=== PATIENT | female | born 1960 | race Caucasian/White ===

== ENCOUNTER 2016-06-27 10:51 | Outpatient (CLI) | payer BC, MEDICARE ==
[~2016-06-27] VITALS: Ht 175.3 cm; Wt 62.1 kg
[2016-06-27] VITALS (10 sets, daily range): BP systolic 94–129; BP diastolic 59–82; PULSE 57–69; RESP 12–16; TEMP 97.2–98.6; O2SAT 96–100; Ht 175.3 cm; Wt 62.1 kg
[~2016-06-27 10:51] MED LIST: ALBU8.5H INH; AMLO1CAP PO; BACL20TA71 PO; BENZ100C97 PO; BIOT10003 PO; BUPR300T59 PO; CALC-191 PO; CHOL40003 PO; CLON1TAB4 PO; CLOP75TA19 PO; CRAN1CAP3 PO; DEXT15CA20 PO; ESTR10TA VAGINALLY; EZET1TAB2 PO; FISH1CAP59 PO; FLUO40CA49 PO; FLUT16SP13 EA NOSTRIL; FLUT1DIS31 INH; GARL1000 PO; IBUP-1547 PO; LEVO100T83 PO; MULT-933 PO; NITR0.4T27 SL; OXYC60TA7 PO; PREN-58 PO; RISE35TA12 PO; ROPI1TAB12 PO; VITA-357 PO; [UNRECOGNIZED DRUG - CODE] PO
--- NOTE | 2016-06-27 10:57 | NUR ---
ARRIVAL PATIENT ARRIVED TO SURGICAL UNIT ROOM 116 AT THIS TIME. PT AMBULATORY. PT APPEARS IN NO ACUTE DISTRESS. FAMILY AT BEDSIDE. WILL CONTINUE TO MONITOR.
[2016-06-27] MEDS ORDERED: IOHEXOL 300 MG/ML 50ml INJECTION ONE (11:08)
[2016-06-27] MEDS ORDERED: EZET1TAB2 PO (12:01)
[2016-06-27] MEDS ORDERED: CARV3.12 PO (12:01)
[2016-06-27] MEDS ORDERED: CALC600T12 PO (12:01)
[2016-06-27] MEDS ORDERED: VALA500T42 PO (12:01)
[2016-06-27] MEDS ORDERED: CRAN500C3 PO (12:01)
[2016-06-27] MEDS ORDERED: FLUO40CA49 PO (12:01)
[2016-06-27] MEDS ORDERED: DULO30CA52 PO (12:01)
[2016-06-27] MEDS ORDERED: TOPI200T45 PO (12:01)
[2016-06-27] MEDS ORDERED: FURO20TA4 PO (12:01)
[2016-06-27] MEDS ORDERED: ESTR10TA VAGINALLY (12:01)
[2016-06-27] MEDS ORDERED: OXYC15TA50 PO (12:01)
[2016-06-27] MEDS ORDERED: FISH12002 PO (12:01)
[2016-06-27] MEDS ORDERED: CHOL50006 PO (12:01)
[2016-06-27] MEDS ORDERED: ASPI325T PO (12:01)
[2016-06-27] MEDS ORDERED: AMLO1CAP10 PO (12:01)
[2016-06-27] MEDS ORDERED: DULO60CA56 PO (12:01)
[2016-06-27] MEDS ORDERED: LEVO5TAB20 PO (12:01)
[2016-06-27 12:03] LABS: INR 0.92 (0.76-1.04)
--- NOTE | 2016-06-27 13:26 | NUR ---
TO RADIOLOGY PATIENT TAKEN TO RADIOLOGY AT THIS TIME VIA RADIOLOGY STAFF AND WHEELCHAIR. CHART AND CONSENT SENT WITH PATIENT. WILL CONTINUE TO MONITOR.
--- NOTE | 2016-06-27 13:50 | NUR ---
CM CM IN TO VISIT WITH PT AND MOTHER. PT PLANS TO DC HOME. SHE DENIES DC NEEDS. SHE IS GIVEN CM CONTACT INFORMATION. Addendum: 06/27/16 at 1351 by PRASANNA CARD RN Amended: Links added.
--- NOTE | 2016-06-27 14:20 | NUR ---
RETURN PT RETURNED TO ROOM 116 AT THIS TIME VIA WHEELCHAIR. PT REPOSITIONED SELF INTO THE BED IN A LYING SUPINE POSITION. VITAL SIGNS STABLE ON ROOM AIR. BED ALARM ON. SIDE RAILS UP X2. WILL CONTINUE TO MONITOR.
--- NOTE | 2016-06-27 14:55 | DI ---
Indication: ITS.REASON: M54.5 LOW BACK PAIN PROCEDURE: CT LUMBAR SPINE W/O CONTRAST: Encounter: Initial Comparison: None Technique: Axial noncontrast CT imaging of the lumbar spine was performed with coronal and sagittal two-dimensional reformats. Three-dimensional surface shaded volume rendered imaging was also created on a dedicated workstation and reviewed. Automated Exposure Control and Iterative Reconstruction dose reducing techniques were utilized. FINDINGS: Alignment of the lumbar spine shows grade 1 anterolisthesis of L4 on L5. Anterior and posterior spinal fusion extending from L2 through S1. There is lucency surrounding the bilateral L2 pedicle screws, the right screw extends into the L1-L2 disk space. This is concerning for loosening or infection. No other areas concerning for loosening or hardware failure. Interbody bone cages seen at L3-L4, L4-L5 and L5-S1. No acute fracture identified. Severe degenerative endplate change at L1-L2 with vacuum disk phenomenon and severe height loss. The paraspinal soft tissues show no acute findings. Posterior decompressions noted at L3-L4 and L4-L5. Segmental analysis: T12-L1: Normal L1-L2: Severe disk height loss without focal protrusion. Ligamentum flavum thickening and degenerative facet change contributing to mild to moderate central canal narrowing. No significant neural foraminal stenosis. L2-L3: No focal disk protrusion or central canal stenosis. No neural foraminal stenosis. L3-L4: No focal protrusion. Posterior decompression no obvious neural foraminal stenosis. L4-L5: Posterior decompression. No significant neural foraminal stenosis. L5-S1: No focal disk herniation or central canal stenosis. No significant neural foraminal stenosis. Impression: Lucency surrounding the L2 pedicle screws bilaterally concerning for infection or loosening. Recommend clinical and laboratory correlation. .
--- NOTE | 2016-06-27 15:02 | DI ---
Indication: ITS.REASON: M48.2 SPINAL STENOSIS PROCEDURE: CT MYELOGRAM CERVICAL SPINE: Encounter: Initial Comparison: None Technique: Axial CT imaging through the cervical spine was performed after the administration of intrathecal contrast. The myelogram injection is described in a separate procedural report. Coronal and sagittal two-dimensional reformats. Automated Exposure Control and Iterative Reconstruction dose reducing techniques were utilized. Findings: Alignment of the cervical spine is straightened with loss of the normal lordosis. No acute fracture or subluxation seen. There is mild to moderate disk space narrowing at C5-C6 and C6-C7. No contour deforming cord lesion or mass. The paraspinal soft tissues show no acute findings. Segmental analysis: C2-C3: No focal disk herniation, central canal or neural foraminal stenosis. C3-C4: Small central disk osteophyte without central canal or neural foraminal stenosis. C4-C5: Small left central disk osteophyte resulting in mild left neural foraminal stenosis. No significant right foraminal stenosis. C5-C6: Right-sided uncovertebral and degenerative facet changes contributing to moderate neural foraminal stenosis. No focal central protrusion or central canal stenosis. Mild left neural foraminal narrowing. C6-C7: Central disk protrusion mildly effacing the ventral thecal sac with mild central canal narrowing. Degenerative uncovertebral changes resulting in moderate left and mild right neural foraminal stenosis. C7-T1: Normal Impression: Degenerative disk and facet disease as above. .
--- NOTE | 2016-06-27 15:12 | DI ---
INDICATION: ITS.REASON: M48.02 Ordering physician:Viji Davis MD Procedure:MYELOGRAM CERVICAL INJECTION FOR CT MYELOGRAM: The procedure including the benefits, risks, and alternatives were explained in detail to the patient. All of their questions were answered. She stated that she understood and wished to proceed. Informed consent was obtained. A preprocedural timeout was performed to confirm the correct patient and procedure. Using sterile technique, local Xylocaine anesthesia, and fluoroscopic guidance throughout, a 22 G spinal needle was advanced from a posterior approach into the subarachnoid space at the L4 level. A fluoroscopic image was then obtained and archived. Removal of the stylet showed clear colorless CSF. 15 cc of Omnipaque 300 was slowly instilled within the intrathecal space. The needle was then removed. Fluoroscopic images were then obtained. Following this, the patient was transferred to the CT department for their scan. Please see the separate CT report. Impression: Successful intrathecal injection of contrast for a CT cervical myelogram. Fluoroscopy dose: 7.66 mGy (Cumulative air kerma) Louis Tidwell RPA/SHEA performed this under my personal supervision. .
--- NOTE | 2016-06-27 16:52 | NUR ---
DISCHARGE PT DISCHARGED TO HOME AT THIS TIME IN THE COMPANY OF HER MOTHER AFTER MEETING DISCHARGE CRITERIA. THIS RN NOTIFIED DR. PIZARRO REGARDING PT'S DISCHARGE A COURTESY. NO FURTHER CONCERNS FROM DR. PIZARRO AT THIS TIME. DISCHARGE INSTRUCTION INCLUDING DIET, ACTIVITY, MEDICATIONS, FOLLOW UP APPOINTMENT AND REPORTABLE S/S GIVEN AND REVIEWED WITH PATIENT. PT VERBALIZED UNDERSTANDING OF THESE INSTRUCTIONS AND HAD NO FURTHER QUESTIONS. PERSONAL BELONGINGS RETURNED.
== END 2016-06-27 16:51 | disposition home or self-care (01) ==
LOC: IMA.BED 10:51 → SRG 10:52 → IMA.BED 16:51
PROVIDERS: ATTEND Radiology Diagnostic Radiology
DX: M48.02 Spinal stenosis, cervical region (principal); M47.892 Other spondylosis, cervical region; M47.896 Other spondylosis, lumbar region; M50.223 Other cervical disc displacement at C6-C7 level; M50.31 Other cervical disc degeneration, high cervical region; M50.321 Other cervical disc degeneration at C4-C5 level; R93.7 Abnormal findings on diagnostic imaging of other parts of musculoskeletal system; Z98.1 Arthrodesis status; Z98.890 Other specified postprocedural states; Z51.81 Encounter for therapeutic drug level monitoring; M54.5 Low back pain
CPT/HCPCS: 36415; 62302; 72126; 72131; 85049; 85610; Q9967

== ENCOUNTER 2016-06-28 16:30 | Emergency (ER) | payer BC, MEDICARE ==
[~2016-06-28] VITALS: Ht 175.3 cm; Wt 64.9 kg
[~2016-06-28 16:30] MED LIST changes: -AMLO1CAP PO; +AMLO1CAP10 PO; +ASPI325T PO; -BENZ100C97 PO; -BIOT10003 PO; -CALC-191 PO; +CALC600T12 PO; +CARV3.12 PO; -CHOL40003 PO; +CHOL50006 PO; -CRAN1CAP3 PO; +CRAN500C3 PO; +DULO30CA52 PO; +DULO60CA56 PO; +FISH12002 PO; +FURO20TA4 PO; +LEVO5TAB20 PO; -MULT-933 PO; +OXYC15TA50 PO; +TOPI200T45 PO; +VALA500T42 PO; -VITA-357 PO
[2016-06-28 16:33] VITALS: Ht 175.3 cm; Wt 64.9 kg
--- OUTSIDE RECORDS SUMMARY | 2016-06-28 16:33 | XMS REPORT ---
Author Author Lois Mcintyre [facility], [facility] Address [address] [place] [address] Care Team Providers Care Licensed Pesticide Applicator Name Role Phone Lois Mcintyre Unavailable [phone] PROBLEMS Type Condition ICD9-CM Code [id number] Code Onset Dates Condition Status SNOMED Code Problem Amputation of left lower extremity below knee Z89.512 Active 372667759 Problem Essential hypertension, hypertension with unspecified goal I10 Active 17357078 Problem Mixed hyperlipidemia E78.2 Active 196376933 Problem Type 2 diabetes mellitus without complication E11.9 Active 87046394 Problem Acquired hypothyroidism E03.9 Active 617672858 Problem Osteoporosis M81.0 Active 61380703 ALLERGIES Unknown Allergies SOCIAL HISTORY No smoking Hx information available PLAN OF CARE VITAL SIGNS MEDICATIONS Medication Instructions Dosage Frequency Start Date End Date Duration Status Synthroid 100 mcg (0.1 mg) orally once a day 1 tab(s) 24h Mar, 90 days Active Lotrel 2.5 mg-10 mg orally once a day 1 cap(s) 24h Mar, 90 days Active RESULTS No Results PROCEDURES No Known procedures IMMUNIZATIONS No Known Immunizations
--- OUTSIDE RECORDS SUMMARY | 2016-06-28 16:34 | XMS REPORT | Continuity of Care Document ---
Author Author [facility] Organization [facility] Address Unknown Phone Unavailable Support Name Relationship Address Phone SARAH PIZARRO MD Caregiver [address] [facility] [place] [address] Unavailable KARTHIK ADEN Caregiver [address] [place] [address] Unavailable MARCY HUTCHINS Next Of Kin [address] [place] [address] Insurance Providers Guarantor Inessa Menendez Address [address] [place] [address] CP Email [email or web address] Payer Medicare Policy Number [id number] Subscriber's Name Inessa Menendez Relationship 18 Self Effective Date 01 Payer [employer] Other Policy Number [id number] Subscriber's Name Lan Menendez Relationship 01 Spouse Group Number [id number] Advance Directives Directive Response Recorded Date/Time Ordered Resuscitation Status Full Code 06/27/16 9:19am Resuscitation Documents on File No 06/27/16 11:11am DPOA for Healthcare Only No 06/27/16 11:11am Living Will No 06/27/16 11:11am Problems Active Problems Medical Problem Onset Date Status GI bleed Unknown Acute Hernia Unknown Acute Nosebleed Unknown Acute Sinusitis, acute maxillary Unknown Acute Upper respiratory infection with cough and congestion Unknown Acute Past Problems Medical Problem Onset Date Sinusitis, acute maxillary Unknown Upper respiratory infection with cough and congestion Unknown Medications Current Home Medications Medication Dose Units Route Directions Days Qty Instructions Start Date Albuterol Sulfate (Proair Hfa 90 Mcg/Actuation) 8.5 Gm Hfa.aer.ad 1 Puff Inhalation Twice A Day as needed for Shortness Of Air 12/28/15 Amlodipine Besylate/Benazepril (Amlodipine-Benazepril 2.5-10) 1 Each Capsule 1 Cap Oral Daily 06/27/16 Aspirin 325 Mg Tablet 1 Tab Oral Daily 30 Tablet 06/27/16 Baclofen 20 Mg Tablet 1 Tab Oral Three Times A Day 10/20/10 Bupropion Hcl (Bupropion Xl) 300 Mg Tab.er.24h 300 Mg Oral Daily 07/04/15 Calcium Carbonate (Calcium) 600 Mg Tablet 2 Cap Oral Daily Carvedilol (Coreg) 3.125 Mg Tablet 3.125 Mg Oral Twice Daily With Meals BEST WITH FOOD. 06/27/16 Cholecalciferol (Vitamin D3) 5,000 Unit Capsule 2 Cap Oral Daily 06/27/16 Clonazepam 1 Mg Tablet 1-2 Mg Oral Bedtime as needed for Sl 07/03 Clopidogrel Bisulfate (Plavix) 75 Mg Tablet 75 Mg Oral Daily 09/23 Cranberry Extract (Cranberry) 500 Mg Capsule 1 Cap Oral Daily Dextromethorphan Hbr (Robitussin) 15 Mg Capsule 05/19/16 Duloxetine Hcl 30 Mg Capsule. 1 Cap Oral Daily 06/27/16 Duloxetine Hcl 60 Mg Capsule. 1 Cap Oral Daily 06/27/16 Estradiol (Vagifem) 10 Mcg Tablet 10 Mcg Vaginally Twice A Week 07/04/15 Estradiol (Vagifem) 10 Mcg Tablet 1 Tab Vaginally 3 Times A Week 06/27/16 Ezetimibe/Simvastatin (Vytorin 10-20 Mg Tablet) 1 Each Tablet 1 Tab Oral Bedtime 07/04/15 Ezetimibe/Simvastatin (Vytorin 10-20 Mg Tablet) 1 Each Tablet 1 Tab Oral Daily 06/27/16 Fish Oil/Borage/Flax/Om3,6,9#1 ([place] 3-6-9 1,200 Mg Softgel) 1,200 Mg Capsule 1 Cap Oral Daily 06/27/16 Fish Oil/Dha/Epa (Fish Oil 1,200 Mg Fish Oil) 1 Each Capsule 1,200 Mg Oral Daily 07/04/15 Fluoxetine Hcl 40 Mg Capsule 40 Mg Oral Daily 07/04/15 Fluoxetine Hcl 40 Mg Capsule 2 Cap Oral Daily 06/27/16 Fluticasone Propionate 16 Gm [place].susp 1 [place] Each Nostril Twice A Day as needed for Prn Orders 10/20/10 Furosemide 20 Mg Tablet 1 Tab Oral Daily 06/27/16 Garlic 1,000 Mg Capsule 1,000 Mg Oral Daily 07/04/15 Ibuprofen 800 Mg Tablet 800 Mg Oral Twice A Day 07/04/15 Levocetirizine Dihydrochloride (Xyzal) 5 Mg Tablet 1 Tab Oral Daily as needed for Allery Symptoms 06/27/16 Levothyroxine Sodium (Synthroid) 100 Mcg Tablet 100 Mcg Oral Daily 10/20/10 Nitroglycerin (Nitroquick) 0.4 Mg Tablet 0.4 Mg Sublingual Every 5 Minutes X 3 12/07/10 Oxycodone Hcl 15 Mg Tablet 15 Mg Oral Every 6 Hours as needed for Pain 06/27/16 Oxycodone Hcl (Oxycontin) 60 Mg Tab.er.12h 120 Mg Oral Twice A Day 07/04/15 Vit #76/Iron,Carb/Fa (Prenatabs Rx Tablet) 1 Each Tablet 1 Tab Oral Daily 07/04/15 Risedronate Sodium (Risedronate Sodium Dr) 35 Mg Tablet.dr 35 Mg Oral Weekly 07/04/15 Ropinirole Hcl 1 Mg Tablet 3 Tab Oral Every Evening 07/04/15 Salmeterol Xinafoate/Fluticasone (Advair 250-50 Diskus) 1 Each Disk.w.dev 1 Puff Inhalation Twice A Day as needed for Prn Orders 12/07/10 Sennosides/Docusate Sodium (Senokot-S Tablet) 1 Tab Tablet 2 Tab Oral Twice A Day 10/20/10 Topiramate 200 Mg Tablet 1 Tab Oral Twice A Day 06/27/16 Valacyclovir Hcl (Valacyclovir) 500 Mg Tablet 1 Tab Oral Twice A Day 30 Tablet 06/27/16 Past Home Medications Medication Directions Ordered Status Aspirin 325 Mg Tablet, 325 Mg Oral 02/05/10 Discontinued Aspirin , 10/07/09 Discontinued Baclofen 20 Mg Tablet, 20 Mg Oral Twice A Day 02/05/10 Discontinued Baclofen 10 Mg Tablet, 10/07/09 Discontinued Clindamycin Hcl (Cleocin) 150 Mg Capsule, 150 Mg Oral Twice A Day 07/07/08 Discontinued Clopidogrel Bisulfate (Plavix) 75 Mg Tablet, 75 Mg Oral 02/05/10 Discontinued Estradiol (Divigel) 1 Packet Gel.packet, 1 Packet Transderm Daily 10/20/10 Discontinued Fentanyl (Duragesic 100 Mcg/Hr) 1 Patch .72 H Patch.td72, 1 Patch Transderm 02/05/10 Discontinued Glucophage , 07/07/08 Discontinued Isosorbide , 10/07/09 Discontinued Isosorbide Mononitrate (Imdur) 120 Mg Tab.sr.24h, 120 Mg Oral 02/05/10 Discontinued Levothyroxine Sodium (Synthroid) 100 Mcg Tablet, 100 Mcg Oral 02/05/10 Discontinued Lotrel , 10/07/09 Discontinued Metformin Hcl 500 Mg Tablet, 500 Mg Oral 02/05/10 Discontinued Nitroglycerin 0.4 Mg Tab.subl, 0.4 Mg Sublingual As Needed 10/07/09 Discontinued Opana Er , 07/07/08 Discontinued Oxycodone Hcl 15 Mg Tablet, 15 Mg Oral 02/05/10 Discontinued Oxycodone Hcl 5 Mg Capsule, 5 Mg Oral As Needed 10/07/09 Discontinued Plavix , 10/07/09 Discontinued Reglan , 07/07/08 Discontinued Requip , 10/07/09 Discontinued Zofran , 07/07/08 Discontinued Social History Social History Problem Response Recorded Date/Time Onset Date Status Reason for Hospitalization Myelogram 06/27/2016 3:07pm Not Applicable Not Applicable Chewing Tobacco Status No 06/27/2016 11:14am Not Applicable Not Applicable Hx Substance Use No 06/27/2016 11:14am Not Applicable Not Applicable Hx Alcohol Use No 06/27/2016 11:14am Not Applicable Not Applicable Has the pt used tobacco in the last 12 months Yes 06/27/2016 11:14am Not Applicable Not Applicable Tobacco Usage none 10/01/2014 10:24am Not Applicable Not Applicable Query Response Start Date Stop Date Smoking Status Former smoker Hospital Discharge Instructions Instructions: Care Instructions: I was in the hospital because (patient own words): "CT AND MYLEOGRAM" Discharge Diet: As tolerates Discharge Activity: See discharge instructions Follow Up Appointments: Follow up with provider as needed. Pending Lab / Results: No Pending Lab Expected Signs/Symptoms: See discharge instructions Notify Physician If: There are any concerns During Business Hours:: Please call the physician's office at After Business Hours:: Please call [phone] and have the plastics sheet finishing press operator page the physician. Pain Management/Treatment: See discharge instructions Pain Scale Utilized to Educate Patient: 0-10 Pain Scale Wound/Incision Care: See discharge instructions Condition at time of discharge: Good Plan of Care Discharge Date 06/27/16 4:51pm Instructions/Education Provided [facility] Myelogram/Lumbar Puncture Myelogram (DC) Prescriptions See Medication Section Functional Status Query Response Date Recorded Mobility Status Ambulatory June 27, 2016 11:25am Assistive Devices Prosthesis June 27, 2016 11:25am Feeding Ability Independent June 27, 2016 11:25am Toileting Ability Independent June 27, 2016 11:25am Grooming Ability Independent June 27, 2016 11:25am Dressing Ability Independent June 27, 2016 11:25am Driving Ability Independent June 27, 2016 11:25am Housework Ability Independent June 27, 2016 11:25am Meal Preparation Ability Independent June 27, 2016 11:25am Stair Climbing Ability Independent June 27, 2016 11:25am Ability to complete ADL's impeded by No change June 27, 2016 11:25am Cognitive/Perceptual Impairments Impaired vision June 27, 2016 11:25am Visual Assistive Devices Glasses With patient June 27, 2016 11:25am Preferred Method of Learning Reading Listening June 27, 2016 11:25am Allergies, Adverse Reactions, Alerts Allergen Type Severity Reaction Status Last Updated varenicline tartrate Allergy Mild Active 06/27/16 Sulfa (Sulfonamide Antibiotics) Allergy Unknown Active 06/27/16 Gabapentin Allergy Unknown Active 06/27/16 Immunizations Query Response on File Recorded Date/Time Hx Influenza Vaccination Y fall 201506/27/16 11:14am Hx Pneumococcal Vaccination Y 201406/27/16 11:14am Hx Influenza Vaccination Y fall 201506/27/16 11:14am DTaP Vaccine History UNKNOWN 05/19/16 2:29pm Influenza Vaccine Hx DEC 2015 05/19/16 2:29pm Vital Signs Acute Vital Signs Vital Response Date/Time Temperature (Fahrenheit) 98.6 deg F (96.8 - 99.1) 06/27/2016 2:33pm Temperature (Calculated Celsius) 37.60460 degrees C (36.0 - 37.3) 06/27/2016 2:33pm Temperature Source Oral 06/27/2016 2:33pm Pulse Rate (adult) 69 bpm (60 - 100) 06/27/2016 4:18pm Respiratory Rate 16 breaths/min (10 - 20) 06/27/2016 4:18pm O2 Sat by Pulse Oximetry 97 % (90 - 100) 06/27/2016 4:18pm Oxygen Delivery Method Room Air 06/27/2016 4:18pm Oxygen Delivery Method Room Air 06/27/2016 3:23pm Blood Pressure 109/69 mm Hg 06/27/2016 4:18pm Blood Pressure Source Automatic Cuff 06/27/2016 4:18pm Height (Feet) 5 feet 06/27/2016 11:09am Height (Inches) 9.00 inches 06/27/2016 11:09am Weight (Kilograms) 62.100 kg 06/27/2016 11:24am Body Mass Index (BMI) 20.2 06/27/2016 11:09am Results Laboratory Results Test Name Result Units Flags Reference Collection Date/Time Result Date/ Time Comments Platelet Count 207 T/MM3 130-400 06/27/2016 11:38am 06/27/2016 12:01pm Prothromb Time International Ratio 0.92 0.76-1.04 06/27/2016 11:38am 06/27/2016 12:03pm THERAPUTIC RANGE=2.00-3.00 FOR ANTI-THROMBOSIS THERAPUTIC RANGE=2.50-3.50 FOR IMPLANTED VALVE Name: INESSA MENENDEZ Unit #: [id number] : 1960 Sex: F Admit Date: Loc / Svc: SRG Discharge Date: DIAGNOSTIC IMAGING REPORT Report #: [id number] [facility] Tim PATTI INDICATION: ITS.REASON: M48.02 Ordering physician:Viji Davis MD Procedure:MYELOGRAM CERVICAL INJECTION FOR CT MYELOGRAM: The procedure including the benefits, risks, and alternatives were explained in detail to the patient. All of their questions were answered. She stated that she understood and wished to proceed. Informed consent was obtained. A preprocedural timeout was performed to confirm the correct patient and procedure. Using sterile technique, local Xylocaine anesthesia, and fluoroscopic guidance throughout, a 22 G spinal needle was advanced from a posterior approach into the subarachnoid space at the L4 level. A fluoroscopic image was then obtained and archived. Removal of the stylet showed clear colorless CSF. 15 cc of Omnipaque 300 was slowly instilled within the intrathecal space. The needle was then removed. Fluoroscopic images were then obtained. Following this, the patient was transferred to the CT department for their scan. Please see the separate CT report. Impression: Successful intrathecal injection of contrast for a CT cervical myelogram. Fluoroscopy dose: 7.66 mGy (Cumulative air kerma) Sarah Tidwell RPA/SHEA performed this under my personal supervision. . Procedures No known history of procedures. Encounters Encounter Location Arrival/Admit Date Discharge/Depart Date Attending Provider Departed Clinic [facility] 06/27/16 10:51am 06/27/16 4:51pm SARAH PIZARRO MD Departed Emergency Room [facility] 05/19/16 2:20pm 05/19/16 3: 03pm BRIEN CRISTINA APRN
--- OUTSIDE RECORDS SUMMARY | 2016-06-28 16:35 | XMS REPORT ---
Author Author Lois Mcintyre Organization [facility], [facility] Address [address] [place] [address] Care Team Providers Care Cattle Dehorner Name Role Phone Lois Mcintyre Unavailable [phone] PROBLEMS Type Condition ICD9-CM Code [id number] Code Onset Dates Condition Status SNOMED Code Assessment Common cold J00 Jan, Active 07684002 Problem Amputation of left lower extremity below knee Z89.512 Active 778852722 Problem Essential hypertension, hypertension with unspecified goal I10 Active 80963192 Problem Mixed hyperlipidemia E78.2 Active 497034065 Problem Type 2 diabetes mellitus without complication E11.9 Active 11491484 Problem Acquired hypothyroidism E03.9 Active 808928786 Problem Osteoporosis M81.0 Active 82266020 ALLERGIES Substance Reaction Event Type Date Status morphine swelling Drug Allergy Jan, Active Macrodantin doesnt work well Drug Allergy Jan, Active Xanax itchy Drug Allergy Jan, Active chantix hives Non Drug Allergy Jan, Active Neurontin hives and rash Non Drug Allergy Jan, Active Sulfa shock Non Drug Allergy Jan, Active SOCIAL HISTORY No smoking Hx information available PLAN OF CARE VITAL SIGNS Height 69.25 in 2016-01-25 Weight 128.8 lbs 2016-01-25 Temperature 97.9 degrees Fahrenheit 2016-01-25 Respiratory Rate 16 /min 2016-01-25 BMI 18.88 kg/m2 2016-01-25 Blood pressure systolic 144 mm Hg 2016-01-25 Blood pressure diastolic 90 mm Hg 2016-01-25 MEDICATIONS Medication Instructions Dosage Frequency Start Date End Date Duration Status Xyzal 5 mg orally once a day (in the evening) 1 tab(s) Jun, 30 day(s) Active Atelvia 35mg orally once a week 1 Dec, 90 days Active Vytorin 10 mg-20 mg orally once a day 1 tab(s) 24h Jun, 30 days Active Lotrel 2.5 mg-10 mg orally once a day 1 cap(s) 24h 12 Salty, 2016 90 days Active Vagifem 10 mcg intravaginally 3 times a week 10 mcg 20 Dec, 2013 90 days Active duloxetine 60 mg orally 2 times a day 1 cap(s) 12h Active oxycodone 15 mg orally every 6 hours prn 1 tab(s) Active Cymbalta 30 mg orally 2 times a day 1 cap(s) 12h Active Advair Diskus 250 mcg-50 mcg inhaled BID 1 puff(s) 12h 90 day(s) Active ProAir HFA CFC free 90 mcg/inh inhaled QID-PRN 2 puff(s) Sep, 30 days Active Requip 1 mg orally 3 times a day 1 tab(s) 8h Mar, 90 days Active baclofen 20 mg orally 3 times a day 1 tab(s) 8h May, 30 days Active clonazepam 1 mg orally QHS 2 tab(s) Oct, 30 days Active Nitrostat 1/150GR po as needed DISSOLVE 1 TABLET UNDER TONGUE NEEDED FOR CHEST PAIN 30 days Active Eren Contour Test Strips use 1 test strip to test blood sugars July 30 days Active Plavix 75 mg orally once a day 1 tab(s) 24h Mar, 90 days Active Nasacort Allergy 24HR 55 mcg/inh intranasally once a day 2 spray(s) 24h Oct, 30 day(s) Active Wellbutrin XL 300 mg/24 hours orally Q24H 1 tab(s) Mar, 90 days Active Synthroid 100 mcg (0.1 mg) orally once a day 1 tab(s) 24h Mar, 90 days Active Eren contour lancets use 1 lancet to test blood sugars July, 30 days Active Valtrex 500 mg orally BID 1 tab 12h Apr, 90 days Active Prozac 40 mg orally bid 1 cap(s) 12h Mar, 90 days Active topiramate 200 mg orally BID 1 tab(s) 12h Active Prenatabs Rx Multivitamins with Folic Acid 1 mg orally once a day 1 tab(s) 24h Jan, 90 days Active Eren Contour Meter use meter to test blood sugars July, Active RESULTS No Results PROCEDURES Procedure Date Ordered Related Diagnosis Body Site OFC/OUTPT E&M ESTAB LOW-MOD 1Proc. Jan 25, 2016 Dexamethasone 4mg/ml Jan 25, 2016 Depo Medrol 40mg Jan 25, 2016 IMMUNIZATIONS Vaccine Route Administration Date Status Depo Medrol 40mg IM Intramuscular 0: 00, 14:5 Administered Dexamethasone 4mg/ml IM Intramuscular 0: 00, 14:5 Administered
--- OUTSIDE RECORDS SUMMARY | 2016-06-28 16:36 | XMS REPORT ---
Author Author Lois Mcintyre Organization [facility], [facility] Address [address] [place] [address] Care Team Providers Care Vehicle Controls Engineer Name Role Phone McintyreLois Unavailable [phone] PROBLEMS Type Condition ICD9-CM Code [id number] Code Onset Dates Condition Status SNOMED Code Assessment Acute effusion of right ear H65.191 Oct, Active 85697071 Problem Amputation of left lower extremity below knee Z89.512 Active 965776277 Problem Essential hypertension, hypertension with unspecified goal I10 Active 88697698 Problem Mixed hyperlipidemia E78.2 Active 446668878 Problem Type 2 diabetes mellitus without complication E11.9 Active 56426317 Problem Acquired hypothyroidism E03.9 Active 652695646 Problem Osteoporosis M81.0 Active 79598310 ALLERGIES Substance Reaction Event Type Date Status morphine swelling Drug Allergy Oct, Active Macrodantin doesnt work well Drug Allergy Oct, Active Xanax itchy Drug Allergy Oct, Active chantix hives Non Drug Allergy Oct, Active Neurontin hives and rash Non Drug Allergy Oct, Active Sulfa shock Non Drug Allergy Oct, Active SOCIAL HISTORY No smoking Hx information available PLAN OF CARE VITAL SIGNS Height 69.25 in 2015-10-16 Weight 124.2 lbs 2015-10-16 Temperature 98.5 degrees Fahrenheit 2015-10-16 Respiratory Rate 16 /min 2015-10-16 BMI 18.21 kg/m2 2015-10-16 Blood pressure systolic 110 mm Hg 2015-10-16 Blood pressure diastolic 80 mm Hg 2015-10-16 MEDICATIONS Medication Instructions Dosage Frequency Start Date End Date Duration Status Synthroid 100 mcg (0.1 mg) orally once a day 1 tab(s) 24h Mar, 90 days Active Vytorin 10 mg-20 mg orally once a day 1 tab(s) 24h Jun, 30 days Active Advair Diskus 250 mcg-50 mcg inhaled BID 1 puff(s) 12h 30 day(s) Active Vagifem 10 mcg intravaginally 3 times a week 10 mcg Dec, 90 days Active baclofen 20 mg orally 3 times a day 1 tab(s) 8h May, 30 days Active Eren contour lancets use 1 lancet to test blood sugars July, 30 days Active Fluticasone Propionate 50 mcg/inh intranasally BID 1 spray(s) 12h Oct, 30 day(s) Active Lotrel 2.5 mg-10 mg orally once a day 1 cap(s) 24h Mar, 90 days Active clonazepam 1 mg orally QHS 2 tab(s) Oct, 90 days Active Requip 1 mg orally 3 times a day 1 tab(s) 8h Mar, 90 days Active Prenatabs Rx Multivitamins with Folic Acid 1 mg orally once a day 1 tab(s) 24h Jan, 90 days Active topiramate 200 mg orally BID 1 tab(s) 12h Active oxycodone 15 mg orally every 6 hours prn 1 tab(s) Active Reen Contour Test Strips use 1 test strip to test blood sugars July 30 days Active Wellbutrin XL 300 mg/24 hours orally Q24H 1 tab(s) Mar, 90 days Active ProAir HFA CFC free 90 mcg/inh inhaled QID-PRN 2 puff(s) Sep, 30 days Active Eren Contour Meter use meter to test blood sugars July, Active Xyzal 5 mg orally once a day (in the evening) 1 tab(s) Jun, 30 day(s) Active Nitrostat 1/150GR po as needed DISSOLVE 1 TABLET UNDER TONGUE NEEDED FOR CHEST PAIN 30 days Active Plavix 75 mg orally once a day 1 tab(s) 24h Mar, 90 days Active Prozac 40 mg orally bid 1 cap(s) 12h Mar, 90 days Active Atelvia 35mg orally once a week 1 Dec, 90 days Active Valtrex 500 mg orally BID 1 tab 12h Apr, 90 days Active RESULTS No Results PROCEDURES Procedure Date Ordered Related Diagnosis Body Site OFC/OUTPT E&M ESTAB LOW-MOD 1Proc. Oct 16, 2015 IMMUNIZATIONS No Known Immunizations
--- OUTSIDE RECORDS SUMMARY | 2016-06-28 16:36 | XMS REPORT ---
Author Author Lois Mcintyre [facility], [facility] Address [address] [place] [address] Care Team Providers Care Price Checker Name Role Phone Lois Mcintyre Unavailable [phone] PROBLEMS Type Condition ICD9-CM Code [id number] Code Onset Dates Condition Status SNOMED Code Problem Amputation of left lower extremity below knee Z89.512 Active 225810558 Problem Essential hypertension, hypertension with unspecified goal I10 Active 09224008 Problem Mixed hyperlipidemia E78.2 Active 884786345 Problem Type 2 diabetes mellitus without complication E11.9 Active 15293564 Problem Acquired hypothyroidism E03.9 Active 308999461 Problem Osteoporosis M81.0 Active 68797158 ALLERGIES Unknown Allergies SOCIAL HISTORY No smoking Hx information available PLAN OF CARE VITAL SIGNS MEDICATIONS Unknown Medications RESULTS No Results PROCEDURES No Known procedures IMMUNIZATIONS No Known Immunizations
--- OUTSIDE RECORDS SUMMARY | 2016-06-28 16:36 | XMS REPORT ---
Author Author Lois Mcintyre Organization [facility], [facility] Address [address] [place] [address] Care Team Providers Care Fur Stretcher Name Role Phone Lois Mcintyre Unavailable [phone] PROBLEMS Type Condition ICD9-CM Code [id number] Code Onset Dates Condition Status SNOMED Code Assessment Edema 782.3 Aug, Active 42197528 Assessment Arachnoiditis 322.9 Aug, Active 8185498 ALLERGIES Substance Reaction Event Type Date Status Macrodantin doesnt work well Drug Allergy Aug, Active Xanax ichy Drug Allergy Aug, Active chantix hives Non Drug Allergy Aug, Active Neurontin hives and rash Non Drug Allergy Aug, Active Sulfa shock Non Drug Allergy Aug, Active SOCIAL HISTORY No smoking Hx information available PLAN OF CARE VITAL SIGNS Height 69.25 in 2014-08-14 Weight 130 lbs 2014-08-14 Temperature 97.4 degrees Fahrenheit 2014-08-14 Respiratory Rate 16 /min 2014-08-14 BMI 19.06 kg/m2 2014-08-14 Blood pressure systolic 94 mm Hg 2014-08-14 Blood pressure diastolic 68 mm Hg 2014-08-14 MEDICATIONS Medication Instructions Dosage Frequency Start Date End Date Duration Status Lotrel 2.5 mg-10 mg orally once a day 1 cap(s) 24h 90 days Active Vytorin 10 mg-20 mg orally once a day 1 tab(s) 24h Jun, 14 days Active topiramate 100 mg orally BID 1 tab(s) 12h 90 days Active Atelvia 35mg orally once a week 1 Dec, 90 days Active Nitrostat 0.4 mg sublingually every 5 minutes 1 tab(s) Active clonazepam 1 mg orally QHS 2 tab(s) Oct, 90 days Active Prenatabs Rx Multivitamins with Folic Acid 1 mg orally once a day 1 tab(s) 24h Jan, 90 days Active isosorbide mononitrate 120mg orally BID 1 tab(s) 12h 18 Jul, 2011 90 days Active baclofen 20 mg orally 3 times a day 1 tab(s) 8h Jun, 90 days Active oxycodone 15 mg orally every 6 hours prn 1 tab(s) Active One Touch Ultra Strips - check blood sugar readings 12h Apr, 30 days Active Requip 1 mg orally 3 times a day 1 tab(s) 8h Oct, 90 days Active Prozac 40 mg orally bid 1 cap(s) 12h 90 day(s) Active Valtrex 500 mg orally BID 1 tab 12h 20 Dec, 2013 90 days Active Vagifem 10 mcg intravaginally 3 times a week 10 mcg Dec, 90 days Active Coreg 3.125 mg orally 2 times a day 1 tab(s) 12h Active Topamax 50 mg orally BID 1 tab(s) 12h 90 days Active Plavix 75 mg orally once a day 1 tab(s) 24h Dec, 90 days Active Wellbutrin XL 300 mg/24 hours orally Q24H 2 tab(s) 90 days Active furosemide 20 mg orally once a day 1 tab(s) 24h July, 14 days Active Synthroid 100 mcg (0.1 mg) orally once a day 1 tab(s) 24h Dec, 90 days Active Advair Diskus 250 mcg-50 mcg inhaled BID 1 puff(s) 12h 30 day(s) Active RESULTS No Results PROCEDURES Procedure Date Ordered Related Diagnosis Body Site OFC/OUTPT E&M ESTAB LOW-MOD 1Proc. August 14, 2014 IMMUNIZATIONS No Known Immunizations
--- OUTSIDE RECORDS SUMMARY | 2016-06-28 16:37 | XMS REPORT | Continuity of Care Document ---
Author Author [facility] Organization [facility] Address Unknown Phone Unavailable Care Team Providers Care Roller Coaster Engineer Name Role Phone SUKHDEEP HAYWOOD MD Primary Care Physician Unavailable Insurance Providers Guarantor Inessa Menendez Address [address] [place] [address] CP Email DENIED/NO TO PT PORTAL Payer Medicare Policy Number [id number] Subscriber's Name Inessa Menendez Relationship 18 Self Effective Date 01 Payer wise[employer] Other Policy Number [id number] Subscriber's Name Lan Menendez Relationship 01 Spouse Group Number [id number] Chief Complaint and Reason for Visit Chief Complaint Cough,Fever,Flu,URI Reason for Visit Upper respiratory infection with cough and congestion Sinusitis, acute maxillary Problems Active Problems Medical Problem Onset Date Status GI bleed Unknown Acute Hernia Unknown Acute Nosebleed Unknown Acute Past Problems Medical Problem Onset Date Sinusitis, acute maxillary Unknown Upper respiratory infection with cough and congestion Unknown Medications Current Home Medications Medication Dose Units Route Directions Days Qty Instructions Start Date Albuterol Sulfate (Proair Hfa 90 Mcg/Actuation) 8.5 Gm Hfa.aer.ad 1 Puff Inhalation Every 6 Hours as needed for Shortness Of Air 12/28/15 Amlodipine Besylate/Benazepril (Lotrel 10-20 Mg Capsule) 1 Cap Capsule 1 Cap Oral Daily 12/28/15 Amoxicillin 500 Mg Tablet 500 Mg Oral Three Times A Day 10 Days [address] Johnnie Tom Fisheries Technical Officer [facility] [address] [phone] 05/19/16 Baclofen 20 Mg Tablet 60 Mg Oral Bedtime 10/20/10 Benzonatate (Tessalon Perle) 100 Mg Capsule 100 Mg Oral Every 8 Hours for Cough 14 Days [address] Johnnie Tom Fisheries Technical Officer [facility] [address] [facility] [phone] 05/19/16 Biotin 10,000 Mcg Capsule 10,000 Mcg Oral Daily 07/04/15 Bupropion Hcl (Bupropion Xl) 300 Mg Tab.er.24h 300 Mg Oral Daily 07/04/15 Calcium Carbonate/Vitamin D3 (Calcium + Vitamin D Tablet) 1 Each Tablet 2 Tab Oral Daily 07/04/15 Cholecalciferol (Vitamin D3) (Vitamin D3) 4,000 Unit Capsule 8,000 Unit Oral Daily 12/28/15 Clonazepam 1 Mg Tablet 1 Mg Oral Bedtime 07/04/15 Clopidogrel Bisulfate (Plavix) 75 Mg Tablet 75 Mg Oral Daily 09/23 Cranberry Conc/Ascorbic Acid (Cranberry 12,600 Mg Softgel) 1 Each Capsule 25, 200 Mg Oral Bedtime 07/04/15 Dextromethorphan Hbr (Robitussin) 15 Mg Capsule 05/19/16 Estradiol (Vagifem) 10 Mcg Tablet 10 Mcg Vaginally Twice A Week 07/04/15 Ezetimibe/Simvastatin (Vytorin 10-20 Mg Tablet) 1 Each Tablet 1 Tab Oral Bedtime 07/04/15 Fish Oil/Dha/Epa (Fish Oil 1,200 Mg Fish Oil) 1 Each Capsule 1,200 Mg Oral Daily 07/04/15 Fluoxetine Hcl 40 Mg Capsule 40 Mg Oral Daily 07/04/15 Fluticasone Propionate 16 Gm Steele.susp 1 Steele Each Nostril Twice A Day as needed for Prn Orders 10/20/10 Garlic 1,000 Mg Capsule 1,000 Mg Oral Daily 07/04/15 Ibuprofen 800 Mg Tablet 800 Mg Oral Twice A Day 07/04/15 Levothyroxine Sodium (Synthroid) 100 Mcg Tablet 100 Mcg Oral Daily 10/20/10 Multivitamin (Multi-Day Vitamins) 1 Each Tablet 1 Tab Oral Daily 12/28/15 Nitroglycerin (Nitroquick) 0.4 Mg Tablet 0.4 Mg Sublingual Every 5 Minutes X 3 12/07/10 Oxycodone Hcl (Oxycontin) 60 Mg Tab.er.12h 120 Mg Oral Twice A Day 07/04/15 Vit #76/Iron,Carb/Fa (Prenatabs Rx Tablet) 1 Each Tablet 1 Tab Oral Daily 07/04/15 Promethazine Hcl/Codeine (Promethazine-Codeine Syrup) 118 Ml Syrup 5 Ml Oral Every Night Prn as needed for Cough 10 Days [address] Johnnie Tom Fisheries Technical Officer [facility] [address] [facility] [phone] 05/19/16 Pseudoephedrine Hcl (Sudafed 12-Hour) 120 Mg Tablet.er 1 Tab Oral Twice A Day 20 Tablet 05/19/16 Risedronate Sodium (Risedronate Sodium Dr) 35 Mg Tablet.dr 35 Mg Oral Weekly 07/04/15 Ropinirole Hcl 1 Mg Tablet 1 Mg Oral Three Times A Day 07/04/15 Salmeterol Xinafoate/Fluticasone (Advair 250-50 Diskus) 1 Each Disk.w.dev 1 Puff Inhalation Twice A Day as needed for Prn Orders 12/07/10 Sennosides/Docusate Sodium (Senokot-S Tablet) 1 Tab Tablet 2 Tab Oral Bedtime 10/20/10 Vitamin E Acetate (Vitamin E) 1,000 Unit Capsule 2,000 Unit Oral Daily 07/04/15 Past Home Medications Medication Directions Ordered Status [...] Problem Response Recorded Date/Time Onset Date Status Hx Substance Use No 12/28/2015 9:27pm Not Applicable Not Applicable Hx Alcohol Use No 12/28/2015 9:27pm Not Applicable Not Applicable Tobacco Usage none 10/01/2014 10:24am Not Applicable Not Applicable Hospital Discharge Instructions No hospital discharge instructions. Plan of Care Discharge Date 05/19/16 3:03pm Disposition 01 DISCHARGED HOME, SELF-CARE Condition at Discharge Stable Instructions/Education Provided Sinusitis (ED) Upper Respiratory Infection (ED) Prescriptions See Medication Section Referrals KARTHIK ADEN Address: [address] [place] [address] [id number] SUKHDEEP HAYWOOD MD Additional Instructions/Education Take amoxicillin as directed. Use Tessalon Perles during daytime as needed for cough. Use promethazine with codeine at bedtime as needed for cough. Follow with primary care this week particularly if symptoms are not improving. Functional Status No functional status results. Allergies, Adverse Reactions, Alerts Allergen Type Severity Reaction Status Last Updated varenicline tartrate Allergy Mild Active 05/19/16 Sulfa (Sulfonamide Antibiotics) Allergy Unknown Active 05/19/16 Gabapentin Allergy Unknown Active 05/19/16 Immunizations Query Response on File Recorded Date/Time Hx Influenza Vaccination Y DEC 2013 10/01/14 10:08am Hx Pneumococcal Vaccination Y 200710/01/14 10:08am Hx Influenza Vaccination Y DEC 2013 10/01/14 10:08am DTaP Vaccine History UNKNOWN 05/19/16 2:29pm Influenza Vaccine Hx DEC 2015 05/19/16 2:29pm Vital Signs Acute Vital Signs Vital Response Date/Time Temperature (Fahrenheit) 99.3 deg F (96.8 - 99.1) 05/19/2016 2:24pm Temperature (Calculated Celsius) 37.99839 degrees C (36.0 - 37.3) 05/19/2016 2:24pm Pulse Rate (adult) 83 bpm (60 - 100) 05/19/2016 2:24pm Respiratory Rate 20 breaths/min (10 - 20) 05/19/2016 2:24pm O2 Sat by Pulse Oximetry 97 % (90 - 100) 05/19/2016 2:24pm Blood Pressure 138/82 mm Hg 05/19/2016 2:24pm Height (Inches) 68.50 inches 05/19/2016 2:24pm Weight (Kilograms) 60.500 kg 05/19/2016 2:24pm Body Mass Index (BMI) 19.0 05/19/2016 2:24pm Results No known relevant diagnostic tests, laboratory data and/or discharge summary. Procedures No known history of procedures. Encounters Encounter Location Arrival/Admit Date Discharge/Depart Date Attending Provider Departed Emergency Room [facility] 05/19/16 2:20pm 05/19/16 3: 03pm BRIEN CRISTINA APRN Recent Diagnosis
--- OUTSIDE RECORDS SUMMARY | 2016-06-28 16:37 | XMS REPORT ---
Author Author Lois Mcintyre [facility], [facility] Address [address] [place] [address] Care Team Providers Care Airport Duty Manager Name Role Phone Lois Mcintyre Unavailable [phone] PROBLEMS Type Condition ICD9-CM Code [id number] Code Onset Dates Condition Status SNOMED Code Problem Type 2 diabetes mellitus without complication E11.9 Active 85992411 Problem Anxiety F41.9 Active 88810522 Problem Amputation of left lower extremity below knee Z89.512 Active 800593595 Problem Osteoporosis M81.0 Active 24323785 Problem Mixed hyperlipidemia E78.2 Active 858814887 Problem Essential hypertension, hypertension with unspecified goal I10 Active 31178207 Problem Acquired hypothyroidism E03.9 Active 191365945 ALLERGIES No Known Allergies SOCIAL HISTORY No smoking Hx information available PLAN OF CARE VITAL SIGNS MEDICATIONS Unknown Medications RESULTS No Results PROCEDURES No Known procedures IMMUNIZATIONS No Known Immunizations
--- OUTSIDE RECORDS SUMMARY | 2016-06-28 16:39 | XMS REPORT ---
Author Author Lois Mcintyre Organization [facility], [facility] Address [address] [place] [address] Care Team Providers Care Attenuator Name Role Phone Lois Mcintyre Unavailable [phone] PROBLEMS Type Condition ICD9-CM Code [id number] Code Onset Dates Condition Status SNOMED Code Assessment Herpes labialis 054.2 Apr, Active 9327604 Assessment Phantom limb pain 353.6 Apr, Active 015647007 Assessment Depression, major NOS 296.00 Apr, Active 791893003 Assessment Insulin Resistance 277.7 Apr, Active 83827546 Assessment Hypothyroidism (acquired) 244.9 Apr, Active 44252974 Assessment Insomnia 780.52 Apr, Active 041948813 Assessment Osteoporosis NOS 733.00 Apr, Active 60183788 Assessment HORMONE IMBALANCE NOS 259.9 Apr, Active 011261718 Assessment CAD Unspecified type of vessel 414.00 Apr, Active 34909082 ALLERGIES Substance Reaction Event Type Date Status Macrodantin doesnt work well Drug Allergy Apr, Active Xanax ichy Drug Allergy Apr, Active chantix hives Non Drug Allergy Apr, Active Neurontin hives and rash Non Drug Allergy Apr, Active Sulfa shock Non Drug Allergy Apr, Active SOCIAL HISTORY No smoking Hx information available PLAN OF CARE VITAL SIGNS Height 69.25 in 2014-04-27 Weight 127 lbs 2014-04-27 Temperature 97.7 degrees Fahrenheit 2014-04-27 Respiratory Rate 16 /min 2014-04-27 BMI 18.62 kg/m2 2014-04-27 Blood pressure systolic 110 mm Hg 2014-04-27 Blood pressure diastolic 70 mm Hg 2014-04-27 MEDICATIONS Medication Instructions Dosage Frequency Start Date End Date Duration Status Advair Diskus 250 mcg-50 mcg inhaled BID 1 puff(s) 12h 30 day(s) Active baclofen 20 mg orally 3 times a day 1 tab(s) 8h 14 Jun, 2013 90 days Active Plavix 75 mg orally once a day 1 tab(s) 24h Dec, 90 days Active Synthroid 100 mcg (0.1 mg) orally once a day 1 tab(s) 24h Dec, 90 days Active OxyContin 60 mg orally TID 2 tab(s) 8h Active Vytorin 10 mg-20 mg orally once a day 1 tab(s) 24h Jun, 90 day( s) Active Wellbutrin XL 300 mg/24 hours orally Q24H 2 tab(s) 90 days Active Prenatabs Rx Multivitamins with Folic Acid 1 mg orally once a day 1 tab(s) 24h Jan, 90 days Active topiramate 100 mg orally BID 1 tab(s) 12h 90 days Active isosorbide mononitrate 120mg orally BID 1 tab(s) 12h July, 90 days Active Lotrel 2.5 mg-10 mg orally once a day 1 cap(s) 24h 90 days Active clonazepam 1 mg orally QHS 2 tab(s) Oct, 90 days Active Prozac 40 mg orally bid 1 cap(s) 12h 90 day(s) Active Topamax 50 mg orally BID 1 tab(s) 12h 90 days Active Vagifem 10 mcg intravaginally 3 times a week 10 mcg Dec, 90 days Active Valtrex 500 mg orally BID 1 tab 12h 20 Dec, 2013 90 days Active Atelvia 35mg orally once a week 1 20 Dec, 2013 90 days Active One Touch Ultra Strips - check blood sugar readings 12h Apr, 30 days Active Requip 1 mg orally 3 times a day 1 tab(s) 8h 16 Oct, 2012 90 days Active RESULTS No Results PROCEDURES Procedure Date Ordered Related Diagnosis Body Site OFC/OUTPT E&M ESTAB MOD-HI 25Proc. Apr 27, 2014 IMMUNIZATIONS No Known Immunizations
--- OUTSIDE RECORDS SUMMARY | 2016-06-28 16:39 | XMS REPORT ---
Author Author Lois Mcintyre [facility], [facility] Address [address] [place] [address] Care Team Providers Care Pediatric Intensive Physician Name Role Phone Lois Mcintyre Unavailable [phone] PROBLEMS Type Condition ICD9-CM Code [id number] Code Onset Dates Condition Status SNOMED Code Problem Amputation of left lower extremity below knee Z89.512 Active 529464997 Problem Essential hypertension, hypertension with unspecified goal I10 Active 29805453 Problem Mixed hyperlipidemia E78.2 Active 268937746 Problem Type 2 diabetes mellitus without complication E11.9 Active 53053187 Problem Acquired hypothyroidism E03.9 Active 278755966 Problem Osteoporosis M81.0 Active 05771350 ALLERGIES Unknown Allergies SOCIAL HISTORY No smoking Hx information available PLAN OF CARE VITAL SIGNS MEDICATIONS Unknown Medications RESULTS No Results PROCEDURES No Known procedures IMMUNIZATIONS No Known Immunizations
--- NOTE | 2016-06-28 16:40 | NUR ---
REPORT TO ALISHA GREEN
--- NOTE | 2016-06-28 17:10 | NUR ---
PROVIDER Idania JERONIMO REGULATOR OPERATOR IN TO SEE PATIENT.
--- NOTE | 2016-06-28 17:36 | ERPDOC ---
Departure Disposition Decision Date: Jun 28, 2016 Disposition Decision Time: 18:15 Disposition: 01 DISCHARGED HOME, SELF-CARE Impression Impression Impression: Primary Impression: Rib pain on right side Severity: Mild Condition: Stable Seen By: Mid-level only Referrals: KARTHIK ADEN (Family) Patient Instructions: Rib Contusion (ED) Problems/Meds/Labs Reviewed?: Yes Medications reviewed and manag: Yes Additional Instructions: Home and rest You were given Morphine and Toradol in the ER for pain In today with home pain regimen Use ice to right ribs to help with inflammation Follow up with primary care provider in 2-3 days for reevaluation or return to the emergency room for worsening symptoms. Follow up care ordered?: Yes Mental Status: Alert, Oriented HPI - General Medical General Chief Complaint: General Stated Complaint: PAINFUL RT SIDE,POSS BROKEN RIBS Time Seen by Provider: 17:04 Source: patient Exam Limitations: no limitations HPI - General Medical Initial Comments Inessa presents today to the Emergency Department with complaint of right rib pain. She has chronic back and neck pain and was having a CT myleogram of her neck and back yesterday. Since then her 4-6th lateral right ribs has been hurting, it radiates anteriorly. She reports her pain is worse on inspiration and with movement. She has tried to take Ibuprofen 800mg to assist with her pain. Her last dose was at 0800. She denies fevers, chest pain or shortness of air. She has an extensive past medical history of chronic back and neck pain, OA , osteoporosis, T2DM, CAD, cardiomegaly, Gi bleed, HTN, HLD and irregular heart beat. She has had several surgeries include sacral fusions and laminectomies. She is currently seen sitting in bed with her at bedside. She currently reports her right anterior and lateral rib pain at 5/10. 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 laminectomy sacral fusion splenectomy appendectomy hysterectomy cholecystectomy Past Medical History Metabolic: diabetes, hypercholesterolemia, hypertension, hypothyroidism Cardiac: CAD, angina, other (irregular heartbeat) GI: other (GI Bleed) Musculoskeletal: back pain, neck pain Infectious: other (MRSA) Surgical History General: back Cardiac: cardiac stent Joint: foot, other Family History Family PMH: FOUND: [place], diabetes, hypertension Vaccines Hx Influenza Vaccination: Yes (fall 2015) Hx Pneumococcal Vaccination: Yes (2014) Social History Smoking Status: Former smoker (quit 5 years ago) # of Packs/Tins per Day: 1.0 # of Years: 20 Second Hand Exposure: Yes Quit Date: Mar 16, 2014 Substance Use Type: does not use Alcohol Intake: none Sexuality: male partner Review of Systems Constitutional Constitutional: weakness, DENIES: chills, fatigue, fever Cardiovascular Cardiac: DENIES: chest pain, dyspnea on exertion Rhythm/Rate: irregular beat, DENIES: palpitations Pulmonary Respiratory: cough, pleuritic chest pain GI Upper Abdomen: DENIES: nausea, vomiting Lower Abdomen: DENIES: diarrhea Musculoskeletal General: pain All other Systems All Other Systems: Reviewed and Negative Physical Exam General General Nourishment: well nourished General Body Habitus: well groomed Vitals and Pain First Documented Vital Signs Date Time Temp Pulse Resp B/P Pulse Ox O2 Delivery O2 Flow Rate FiO2 06/28/16 16:33 97.8 78 20 103/59 98 Room Air Weight: Kilograms: 64.900 Height (feet): 5 Height (inches): 9.00 Triage Pain Scale: Normal Exams: Head: Normocephalic w/o trauma Eyes: Pupils are PERRLA w/ EOMI, No scleral icterus, irritation, or foreign bodies noted Neck: Full range of motion, without adenopathy, JVD, bruits or thyromegaly Chest/Resp: Clear all sandhu, with good airflow CV: Regular rate and rhythm, Pulses 2+ all extremities Abdomen: Bowel sounds positive, soft, non-tender Lymphatic: No lymphadenopathy Neurologic: Patient is alert, and oriented, cranial nerves, motor/sensory/ cerebellar, exams w/o gross deficits, to observation Psychiatric: Patient exhibits, appropriate attention, emotion and affect Eyes (brief) Eyes Brief: found: EOMI Respiratory (brief) Respiratory: FOUND: clear all sandhu, equal bilaterally, other (pain with palpation to the 4-6th lateral and anterior rib) Cardiovascular (brief) Cardiac: FOUND: regular rate, regular rhythm Abdomen (brief) Abdominal Brief: FOUND: bowel normo active x4, soft Musculoskeletal (brief) Musculoskeletal Brief: FOUND: tenderness (Right anterior rib pain) Integumentary (brief) Integumentary Brief: FOUND: dry, pink, warm Psychiatric (brief) Psychiatric Brief: FOUND: alert, normal affect, oriented Differential Diagnoses Considering: Pneumonia (costochrondritis, rib contusion), Other Progress Results/Orders Orders Procedure Category Date Status Time Ribs Right With Ap RAD 06/28/16 Taken Chest 17:30 Ketorolac (Toradol) PHA 06/28/16 Logged 18:15 Morphine Sulfate PHA 06/28/16 Logged (Morphine) 18:15 Medications Current ED Medications Ketorolac Tromethamine (Toradol) 60 mg O ONCE IM Last administered on t 18:16; Start 06/28/16 at 18:15; Stop 06/28/16 at 18:16; Status UNV Morphine Sulfate (Morphine) 2 mg O ONCE IM Last administered on 06/28/16t 18: 17; Start 06/28/16 at 18:15; Stop 06/28/16 at 18:16; Status UNV Progress Progress Reviewed chest with rib x-ray with Dr Leong. No obvious fracture, No Pneumothorax. Discussed plan of care with patient. Possible rib contusion. Will given Toradol and Morphine IM while in ER for pain control. Encouraged follow up with PCP for further evaluation, or worsening symptoms. Xray Xray : Xray: CXR PA/Lat Interpretation: BUTCH Álvarez APRN Jun 28, 2016 17:36
[2016-06-28] MEDS ORDERED: MORPHINE SULFATE 2 MG SYRINGE IM ONE (18:15)
[2016-06-28] MEDS ORDERED: KETOROLAC 60mg/2ml INJECTION IM ONE (18:15)
[2016-06-28 18:30] VITALS: BP 103/59; PULSE 78; RESP 20; TEMP 97.8; O2SAT 98
--- NOTE | 2016-06-28 20:15 | DI ---
Indication: ITS.REASON: Right lateral rib pain PROCEDURE: RIBS RIGHT WITH AP CHEST: Encounter: Initial Comparison: December 07, 2010 FINDINGS: Chest: The lungs are clear. There is no abnormal airspace opacity, pleural effusion or pneumothorax identified. The heart size, pulmonary vasculature and mediastinum are within normal limits. AP and oblique views of the right ribs: Minimally displaced fracture of the right seventh anterolateral rib. IMPRESSION: Right seventh rib fracture. No acute cardiopulmonary abnormality. .
== END 2016-06-28 18:30 | disposition home or self-care (01) ==
LOC: ED 16:30
DX: R07.81 Pleurodynia (principal)
CPT/HCPCS: 71101; 96372; 99283; J1885

== ENCOUNTER → 2016-07-11 | Outpatient (CLI) | payer BC, MEDICARE ==
[~2016-07-11] MED LIST changes: -LEVO5TAB20 PO; +LEVO5TAB29 PO
--- NOTE | 2016-07-11 14:11 | DI ---
Indication: ITS.REASON: K46.9 HERNIA PROCEDURE: CT ABDOMEN W/O CONTRAST: Encounter: Initial Comparison: CT abdomen and pelvis dated March 23, 2012 Technique: Axial CT images were performed through the abdomen without intravenous contrast. Coronal and sagittal two-dimensional reformats. Automated Exposure Control and Iterative Reconstruction dose reducing techniques were utilized. Findings: The lung bases are clear. The unenhanced contours of the liver are unremarkable. The gallbladder is surgically absent. The spleen, pancreas and adrenal glands are within normal limits. Metallic artifact from lumbar spine hardware. Kidneys are grossly normal. The visualized loops of small and large bowel in the abdomen are within normal limits. There is a small low-attenuation lesion immediately to the right of the umbilicus. This measures 3 x 1.3 cm in size and appears grossly stable dating back to 2012. There is some visible fat tracking into this lesion from the anterior abdomen immediately along the right aspect of the umbilicus. This is best seen on the coronal and sagittal reconstructed images, particularly sagittal image #36. The fascial defect appears very narrow at less than 3 mm. This appears to represent a small fat and fluid containing umbilical or periumbilical hernia. No additional hernia identified. Bone windows show degenerative and postoperative changes in the lumbar spine. Chronic loosening of the right L1 pedicle screw. Impression: Small umbilical or periumbilical hernia without significant change since 2012. .
== END ==
LOC: IMA 13:34
PROVIDERS: ATTEND Nurse Practitioner Primary Care
DX: K42.9 Umbilical hernia without obstruction or gangrene (principal)